=== PATIENT | female | born 1965 | race Caucasian/White ===

== ENCOUNTER 2016-12-22 17:05 | Inpatient (IN) | payer OTHER ==
[~2016-12-22] VITALS: Ht 160 cm; Wt 78.1 kg
[~2016-12-22 17:05] MED LIST: AUGMENTIN875 MG PO; IBUPROFEN800 MG PO; PERCOCET 5/31 TABLET PO; TYLENOL WITH C1 EACH PO; ULTRAM50 MG PO
[2016-12-22 18:03] LABS: HEMATOCRIT 45.3 % (36.0-46.0); MCH 30.4 PG (29.0-34.0); MCHC 33.6 G/DL (30.0-36.0); MCV 90.6 FL (83-99); MEAN PLAT.VOLUME 9.8 uM^3 (9.5-12.4); RBC DIS.WIDTH-CV 11.5 % (11.8-14.6); RBC DIS.WIDTH-SD 38.4 % (39-53)
[2016-12-22 18:06] LABS: PLATELET COUNT 426 K/uL (156-360); WHITE BLOOD COUNT 6.4 K/uL (4.1-10.2)
[2016-12-22 18:28] LABS: CHLORIDE 106 mEq/L (99-109); POTASSIUM 4.1 mEq/L (3.7-5.4); SODIUM 140 mEq/L (136-147)
[2016-12-22 18:29] LABS: GLUCOSE 94 mg/dL (70-99)
[2016-12-22 18:31] LABS: ANION GAP 10 MEQ/L (2-14)
[2016-12-22 18:33] LABS: GFR ESTIMATE (CALCULATED) > 59 mL/min/
[2016-12-22 18:34] LABS: UREA NITROGEN (BUN) 12 mg/dL (9-23)
[2016-12-22] MEDS ORDERED: NATURAL BALANCE15 M1 LEFT EYE (19:01)
[2016-12-22] MEDS ORDERED: PROBIOTIC1 EAC1 PO (19:01)
[2016-12-22 22:00] VITALS: BP 104/71
[2016-12-22 23:00] VITALS: BP 96/55
[2016-12-22 23:30] VITALS: BP 100/67
[2016-12-22 23:47] VITALS: BP 112/76
[2016-12-22 23:50] VITALS: BP 112/76
[2016-12-23 03:41] VITALS: BP 90/54
[2016-12-23 08:08] VITALS: BP 101/65
[2016-12-23 09:33] LABS: ADD MIUA? NO; BILIRUBIN NEGATIVE; BLOOD NEGATIVE; COLOR YELLOW ((YELLOW)); GLUCOSE (STRIP) NEGATIVE; KETONES NEGATIVE; LEUKOCYTES NEGATIVE; NITRITE NEGATIVE; PROTEIN (STRIP) NEGATIVE; SPECIFIC GRAVITY 1.012 (1.000-1.030); UCUL ADDED? NO; UROBILINOGEN 0.2 MG/DL (0.2-1.0)
[2016-12-23 11:13] VITALS: BP 96/58
[2016-12-23 16:18] VITALS: BP 105/61
[2016-12-23 19:33] VITALS: BP 110/57
[2016-12-23 23:15] VITALS: BP 107/59
[2016-12-24 05:39] LABS: ANION GAP 7 MEQ/L (2-14); CHLORIDE 108 MEQ/L (99-109); GFR ESTIMATE (CALCULATED) > 59 mL/min/; GLUCOSE 139 mg/dL (70-99); POTASSIUM 4.3 MEQ/L (3.7-5.4); SAMPLE HEMOLYSIS CHECK 0; SAMPLE ICTERIC CHECK 0; SAMPLE LIPEMIA CHECK 0; SODIUM 138 MEQ/L (136-147)
[2016-12-24 05:49] LABS: UREA NITROGEN (BUN) 22 mg/dL (9-23)
[2016-12-24 06:24] LABS: HEMATOCRIT 36.8 % (36.0-46.0); MCH 30.5 PG (29.0-34.0); MCHC 33.2 G/DL (30.0-36.0); MEAN PLAT.VOLUME 10.2 uM^3 (9.5-12.4); PLATELET COUNT 343 K/uL (156-360); RBC DIS.WIDTH-CV 11.7 % (11.8-14.6); RBC DIS.WIDTH-SD 39.6 % (39-53)
[2016-12-24 06:29] LABS: WHITE BLOOD COUNT 15.4 K/uL (4.1-10.2)
[2016-12-24 11:09] LABS: GFR ESTIMATE (CALCULATED) > 59 mL/min/
[2016-12-24 11:26] LABS: VANCOMYCIN, TROUGH 3.8 MCG/ML (10-20)
[2016-12-24 17:57] VITALS: BP 108/58
[2016-12-24 19:58] VITALS: BP 117/65
[2016-12-24 23:28] VITALS: BP 94/55
[2016-12-25 03:51] VITALS: BP 101/59
[2016-12-25 08:18] VITALS: BP 108/73
[2016-12-25] MEDS ORDERED: PREDNISONE10 MG PO (10:04)
[2016-12-25 11:44] VITALS: BP 102/64
[2016-12-25 23:44] VITALS: BP 120/64
== END 2016-12-26 16:18 | disposition home or self-care (01) | DRG 156 ==
LOC: EME 17:05 → 3EAST 22:23 → EDOF 22:23 → 3EAST 23:38
PROVIDERS: Emergency Medicine; Hospitalist; Physician Assistant
DX: J38.4 Edema of larynx (principal); M65.28 Calcific tendinitis, other site; R13.10 Dysphagia, unspecified
CPT/HCPCS: 72156; 80048; 80202; 81003; 82565; 83605; 85027; 86140; 87040; 99202; 99281; 99285; J0696; J1100; J1644; J1885; J2543; J3370; J7030; J7050; J7512; S0028

== ENCOUNTER → 2017-01-07 | Outpatient (CLI) | payer OTHER ==
[~2017-01-07] MED LIST changes: +NATURAL BALANCE15 M1 LEFT EYE; +PREDNISONE10 MG PO; +PROBIOTIC1 EAC1 PO
== END | disposition home or self-care (01) ==
LOC: PICC 10:59
DX: J38.4 Edema of larynx (principal)
CPT/HCPCS: 76937